=== PATIENT | male | born 1940 | race Two or more races ===

== ENCOUNTER 2021-02-28 01:41 | Inpatient (IN) | payer SELFPAY ==
[~2021-02-28] VITALS: Ht 177.8 cm; Wt 78.9 kg
--- NOTE | 2021-02-28 01:45 | NUR ---
PT BIBRA C/O FEVER X3DAYS WITH COUGH AND CONGESTION. PT AAOX4 BREATHING EVENLY AND UNLABORED. PT PLACED ON 2L O2 NC, STATING 96%. MD AT BEDSIDE. PT ATTACHED TO MONITOR AND POX. 20G RAC IV INITATIED. BLOOD OBTAINED AND SENT TO LAB. WILL CONTINUE TO MONITOR.
--- NOTE | 2021-02-28 01:50 | NUR ---
COVID SWAB SENT TO LAB
[2021-02-28] MEDS ORDERED: ACETAMINOPHEN ES 500 MG TABLET PO ONE (02:00)
[2021-02-28] MEDS ORDERED: ACETAMINOPHEN ES 500 MG TABLET ONE (02:05)
--- NOTE | 2021-02-28 02:27 | NUR ---
XRAY AT BEDSIDE
[2021-02-28 02:30] LABS: CALCIUM, SERUM 8.7 mg/dL (8.5-10.1); CARBON DIOXIDE 30 mmol/L (21-32); CHLORIDE 97 mmol/L (98-107); CREATININE 1.4 mg/dL (0.6-1.3); GLUCOSE 327 mg/dL (74-106); POTASSIUM 3.3 mmol/L (3.5-5.1); SODIUM SERUM 134 mmol/L (136-145); UREA NITROGEN, BLOOD 22 mg/dL (7-18)
[2021-02-28 02:36] LABS: ALANINE AMINOTRANSFERASE 24 U/L (12-78); ALBUMIN 2.9 g/dL (3.4-5.0); ALKALINE PHOSPHATASE 118 U/L (46-116); ASPARTATE AMINOTRANSFERASE 24 U/L (15-37); BILIRUBIN,DIRECT 0.3 mg/dL (0.0-0.2); BILIRUBIN,TOTAL 0.7 mg/dL (0.2-1.0); TOTAL PROTEIN, SERUM 7.2 g/dL (6.4-8.2)
[2021-02-28] MEDS ORDERED: CEFTRIAXONE 1GM BAG (ER ONLY) 50 ML IV ONE (02:39)
[2021-02-28] MEDS ORDERED: AZITHROMYCIN 500 MG VIAL ONE (02:40)
[2021-02-28 02:51] LABS: BASOPHILS % (AUTO) 0.2 % (0.0-2.0); HEMATOCRIT 37 % (39-51); HEMOGLOBIN 12.7 g/dL (13.5-17.5); LYMPHOCYTES # (AUTO) 0.7 K/uL (0.8-4.8); LYMPHOCYTES % (AUTO) 6.9 % (20.0-44.0); MEAN CORPUSCULAR HGB CONC 34 g/dl (31.0-36.0); MEAN CORPUSCULAR VOLUME 87 fL (80-96); MONOCYTES # (AUTO) 0.8 K/uL (0.1-1.30); MONOCYTES % (AUTO) 8.2 % (2.0-12.0); NEUTROPHILS % (AUTO) 84.7 % (43.0-81.0); PLATELET COUNT (AUTO) 165 K/uL (150-450); RED BLOOD CELL COUNT(AUTO) 4.26 MIL/uL (4.5-6.0); WHITE BLOOD COUNT (AUTO) 9.5 K/uL (4.3-11.0)
[2021-02-28] MEDS ORDERED: CEFTRIAXONE 1 G in IV D5W 50 ML IV ONE (03:00)
[2021-02-28] MEDS ORDERED: AZITHROMYCIN 500 MG in IV D5W 250 ML IV ONE (03:00)
--- NOTE | 2021-02-28 03:13 | NUR ---
MARKO HUGGINS - GRANDDAUGHTER. [phone]
[2021-02-28] MEDS ORDERED: CT SWABBABLE VALVE TRANS SET 1 EA INFUS.SET MC ONE (03:24)
[2021-02-28] MEDS ORDERED: IV NS 0.9% 250 ML IV ONE (03:24)
[2021-02-28] MEDS ORDERED: IOHEXOL-350 100 ML VIAL IV ONE (03:24)
[2021-02-28] MEDS ORDERED: IV NS 0.9% 1,000 ML BAG IV ONE (03:30)
--- NOTE | 2021-02-28 03:35 | NUR ---
TAKEN TO RADIOLOGY
--- NOTE | 2021-02-28 03:50 | NUR ---
RETURNED FROM CT
--- NOTE | 2021-02-28 04:35 | NUR ---
TEMP 99.9
--- NOTE | 2021-02-28 05:38 | NUR ---
urine sent to lab
[2021-02-28 05:43] LABS: BILIRUBIN,URINE Negative (NEGATIVE); COLOR,URINE YELLOW (YELLOW); LEUKOCYTE ESTERASE ,URINE Negative (NEGATIVE); NITRITE, URINE Negative (NEGATIVE); PROTEIN,URINE >=300 mg/dl (NEGATIVE); UGLUCOSE >=1000 mg/dL (NEGATIVE)
[2021-02-28 05:54] LABS: BACTERIA,URINE Rare /HPF (None Seen); RBC,URINE 0-2 /HPF (0-2); SQUAMOUS EPITHELIAL CELL,UR None Seen /HPF (None Seen); WBC,URINE 0-2 /HPF (0-3)
[2021-02-28 05:56] LABS: COARSE GRANULAR CASTS,URINE Moderate /LPF (None Seen); MUCUS,URINE Few /LPF (None Seen)
[2021-02-28 05:57] LABS: URINE AMORPHOUS PHOSPHATES Few /HPF (None Seen)
--- NOTE | 2021-02-28 05:58 | NUR ---
DR. FUNG PAGED PER ER ORDER.
[2021-02-28] MEDS ORDERED: MAG HYDROX/AL HYDROX/SIMETH 30 ML UDC PO PRN (06:30)
[2021-02-28] MEDS ORDERED: Z GUARD REMEDY 2 OZ OINT TP PRN (06:30)
[2021-02-28] MEDS ORDERED: ONDANSETRON HCL/PF 4 MG/2 ML VIAL IVP PRN (06:30)
[2021-02-28] MEDS ORDERED: MAGNESIUM HYDROXIDE 30 ML UDC PO PRN (06:30)
[2021-02-28] MEDS ORDERED: ZOLPIDEM TARTRATE 5 MG TABLET PO PRN (06:30)
--- NOTE | 2021-02-28 07:05 | NUR ---
gave report to karyn Avendaño for dharmesh
[2021-02-28] MEDS ORDERED: CEFTRIAXONE 1GM BAG (ER ONLY) 1 GM/50 ML PIGGYBACK IV SCH (09:00)
[2021-02-28] MEDS ORDERED: PANTOPRAZOLE 40 MG TABLET.DR PO ONE (09:13)
[2021-02-28] MEDS ORDERED: ENOXAPARIN SODIUM 40 MG/0.4 ML DISP.SYRIN SQ ONE (09:13)
[2021-02-28] MEDS: ENOXAPARIN SODIUM 40 MG/0.4 ML DISP.SYRIN SQ SCH (09:20)
[2021-02-28] MEDS: PANTOPRAZOLE 40 MG TABLET.DR PO SCH (09:22)
[2021-02-28] MEDS ORDERED: ACETAMINOPHEN 325 MG TABLET ONE (09:23)
[2021-02-28] MEDS ORDERED: DEXTROSE 50%-WATER 50 ML DISP.SYRIN IV PRN (09:30)
[2021-02-28] MEDS: IV NS 0.9% 1,000 ML IV PRN ×2 (09:50→23:05)
[2021-02-28] MEDS: ACETAMINOPHEN 325 MG TABLET PO PRN ×2 (09:52→18:04)
[2021-02-28] MEDS ORDERED: POTASSIUM CHLORIDE 20 MEQ TAB.PRT.SR PO ONE (09:59)
[2021-02-28] MEDS ORDERED: POTASSIUM CHLORIDE 20 MEQ TAB.PRT.SR PO SCH (10:00)
--- NOTE | 2021-02-28 10:59 | NUR ---
room 104 assigned
--- NOTE | 2021-02-28 11:35 | NUR ---
BEDSIDE REPORT GIVEN TO KARSTEN UREÑA FOR MARIXA
--- NOTE | 2021-02-28 11:35 | NUR ---
PT TRANSPORTED TO UNIT ON [facility] WITH EMT AND RN AT [facility] W/ ACLS RPTOCOL. NAD NOTED DURING TRANSPORT.
[2021-02-28 12:00] VITALS: BP 131/57
--- NOTE | 2021-02-28 12:00 | NUR ---
Patient was received from ED. Patient is alert and oriented with weakness. No c/o pain , weakness noted. Patient started on tele box monitor. Vitals assessed. Patient will be monitored.Assessments done.
[2021-02-28] MEDS: INSULIN REGULAR, HUMAN 100 UNIT/ML 3 ML VIAL SQ PRN ×3 (12:59→22:36)
[2021-02-28] MEDS: BLOOD SUGAR DIAGNOSTIC 1 EACH STRIP IN SCH ×3 (12:59→22:23)
[2021-02-28 16:00] VITALS: BP 133/59
[2021-02-28] MEDS ORDERED: NEBI5TAB8 PO (17:25)
[2021-02-28] MEDS ORDERED: IRBESARTAN PO (17:25)
[2021-02-28] MEDS ORDERED: [UNRECOGNIZED DRUG - OTHER] PO (17:25)
[2021-02-28] MEDS ORDERED: BETAHISTINE (17:25)
[2021-02-28] MEDS ORDERED: ATOR20TA PO (17:25)
--- NOTE | 2021-02-28 19:18 | NUR ---
RN CLOSING NOTES Patient is alert and oriented. Breathing even and unlabored. No c/o pain or discomfort. Patient running iv fluids, colby well. Vitals WNL. Bed is in lowest and locked position. Patient at 25% lunch and 50% dinner during shift. Will continue to monitor. Call light with in reach. Addendum: 02/28/21 at 1920 by SUN JOHNSON RN Endorsed to next shift for dharmesh.
--- NOTE | 2021-02-28 19:27 | NUR ---
MED RECON LIST GIVEN TO STAFF AND INFORMED DR HOLDER.
[2021-02-28 20:00] VITALS: BP 117/48
--- NOTE | 2021-02-28 20:30 | NUR ---
RN OPENING NOTE RECEIVED PT AWAKE IN BED. A/O X4. PT ON 2L O2 VIA NC SATS 96%. NO SOB OR S/S OF RESPIRATORY DISTRESS NOTED. PT HAS NO C/O PAIN OR DISCOMFORT AT THIS TIME. IV ACCESS IN LEFT HAND #20, INTACT AND PATENT. SAFETY MEASURES MAINTAINED. BED IN LOWEST LOCKED POSITION, HOB ELEVATED, SIDE RAILS UP X2. CALL LIGHT AND TABLE WITHIN REACH. WILL CONTINUE WITH PLAN OF CARE.
[2021-02-28] MEDS: CEFTRIAXONE 1 G in IV D5W 50 ML IV SCH (21:12)
[2021-02-28] MEDS: METOPROLOL TARTRATE 25 MG TABLET PO SCH (21:13)
[2021-02-28] MEDS: ATORVASTATIN 10 MG TABLET PO SCH (21:13)
[2021-03-01] VITALS: BP 119/55
[2021-03-01] MEDS: AZITHROMYCIN 500 MG in IV D5W 250 ML IV SCH ×2 (00:12→23:25)
[2021-03-01 04:00] VITALS: BP 141/66
--- NOTE | 2021-03-01 04:30 | NUR ---
STARLA ([phone]), PT'S DAUGHTER, CALLED AND WAS UPDATED ON PT'S CONDITION AND PLAN.
[2021-03-01 06:02] LABS: BASOPHILS % (AUTO) 0.2 % (0.0-2.0); EOSINOPHILS % (AUTO) 0.2 % (0.0-6.0); HEMATOCRIT 34 % (39-51); HEMOGLOBIN 11.5 g/dL (13.5-17.5); LYMPHOCYTES # (AUTO) 0.9 K/uL (0.8-4.8); LYMPHOCYTES % (AUTO) 11.8 % (20.0-44.0); MEAN CORPUSCULAR HGB CONC 34 g/dl (31.0-36.0); MEAN CORPUSCULAR VOLUME 89 fL (80-96); MONOCYTES # (AUTO) 0.7 K/uL (0.1-1.30); MONOCYTES % (AUTO) 8.6 % (2.0-12.0); NEUTROPHILS # (AUTO) 6.4 K/uL (1.8-8.9); NEUTROPHILS % (AUTO) 79.2 % (43.0-81.0); PLATELET COUNT (AUTO) 151 K/uL (150-450); RED BLOOD CELL COUNT(AUTO) 3.83 MIL/uL (4.5-6.0)
[2021-03-01 06:20] LABS: CALCIUM, SERUM 7.7 mg/dL (8.5-10.1); MAGNESIUM 2.1 mg/dL (1.8-2.4); PHOSPHORUS 1.8 mg/dL (2.5-4.9); POTASSIUM 3.3 mmol/L (3.5-5.1)
--- NOTE | 2021-03-01 06:30 | NUR ---
RN CLOSING NOTE PT IS IN BED WITH EYES CLOSED, EASILY AROUSED. A/O X4. PT ON 2L O2 VIA NC SATS 96%. NO SOB OR S/S OF RESPIRATORY DISTRESS NOTED. PT IS ON EXTERNAL SUPPORT DIRECTOR READING SR 72. PT HAS NO C/O PAIN OR DISCOMFORT AT THIS TIME. IV ACCESS IS INTACT, PATENT, AND FLUSHING WELL. ALL NEEDS HAVE BEEN MET. SAFETY PRECAUTIONS MAINTAINED AT ALL TIMES. BED IN LOWEST LOCKED POSITION, HOB ELEVATED, SIDE RAILS UP X2. CALL LIGHT AND TABLE WITHIN REACH. WILL ENDORSE TO ONCOMING NURSE FOR MARIXA.
[2021-03-01 06:33] LABS: THYROID STIMULATING HORMONE 0.476 uIU/mL (0.358-3.74)
[2021-03-01 08:00] VITALS: BP 150/62
--- NOTE | 2021-03-01 08:00 | NUR ---
RN note: Pt received alert awake oriented X 3. On 2LPM O2 via NC, no breathing distress noted at rest. Denies pain & discomfort. Safety measures observed. Encourage pt to use call light for assistance. Call light within reach. Continue to monitor.
[2021-03-01] MEDS: ENOXAPARIN SODIUM 40 MG/0.4 ML DISP.SYRIN SQ SCH (08:13)
[2021-03-01] MEDS: ASPIRIN 81 MG TAB.CHEW PO SCH (08:14)
[2021-03-01] MEDS: PANTOPRAZOLE 40 MG TABLET.DR PO SCH (08:14)
[2021-03-01] MEDS: LOSARTAN POTASSIUM 50 MG TABLET PO SCH (08:14)
[2021-03-01] MEDS: BLOOD SUGAR DIAGNOSTIC 1 EACH STRIP IN SCH ×4 (08:15→22:33)
[2021-03-01] MEDS: AMLODIPINE BESYLATE 10 MG TABLET PO SCH (08:15)
[2021-03-01] MEDS: METOPROLOL TARTRATE 25 MG TABLET PO SCH ×2 (08:15→22:19)
[2021-03-01] MEDS ORDERED: POTASSIUM CHLORIDE 20 MEQ TAB.PRT.SR PO ONE (10:00)
[2021-03-01] MEDS ORDERED: K PHOS NEUTRAL 250 MG TABLET PO ONE (10:00)
--- NOTE | 2021-03-01 10:02 | NUR ---
RN Note: AM insulin dose not given due to med not available. Called pharmacy X 2. Spoke with [facility] pharmacist. Waiting for insulin availability.
[2021-03-01] MEDS ORDERED: GUAIFENESIN/CODEINE 10 ML UDC PO PRN (11:00)
[2021-03-01] MEDS: INSULIN REGULAR, HUMAN 100 UNIT/ML 3 ML VIAL SQ PRN ×3 (11:31→22:37)
[2021-03-01 12:00] VITALS: BP 124/57
[2021-03-01 16:00] VITALS: BP 130/59
[2021-03-01] MEDS: IV NS 0.9% 1,000 ML IV PRN (16:44)
--- NOTE | 2021-03-01 19:45 | NUR ---
MS RN OPENING NOTE PATIENT IN BED A/OX4; TRINIDADIAN SPEAKING. ON O2 2LPM VIA N/C; TOLERATING WELL WITH NO SOB. NO S/SX OF PAIN OR DISCOMFORT. LAC #20G NS @ 75ML/HR; PATENT AND INTACT. SAFETY MEASURES IN PLACE: BED IN LOWEST LOCKED POSITION, SIDE RAILS UPX2, CALL LIGHT WITHIN EASY REACH. PATIENT IN STABLE CONDITION WILL CONTINUE PLAN OF CARE.
[2021-03-01 20:00] VITALS: BP 149/58
--- NOTE | 2021-03-01 20:16 | NUR ---
MS RN OPENING NOTE PATIENT IN BED A/OX2. ON O2 8LPM VIA T-PIECE; TOLERATING WELL WITH NO SOB. NO S/SX OF PAIN OR DISCOMFORT. GT PEG PATENT AND INTACT; JEVITY 1.2@ 60ML/HR; TOLERATING FEEDINGS WELL. LAC IV INTACT; 1/2 NS @ 125 ML/HR. DRESSINGS FOR CARCINOMA LESION ON NECK KEPT C/D/I. SAFETY MEASURES IN PLACE: BED IN LOWEST LOCKED POSITION, SIDE RAILS UPX2, CALL LIGHT WITHIN EASY REACH, BED ALARMS ON. PATIENT IN STABLE CONDITION WILL CONTINUE PLAN OF CARE. Addendum: 03/02/21 at 0650 by RITESH GUERRERO RN ERROR WRONG PATIENT DISREGARD NOTE
[2021-03-01] MEDS: CEFTRIAXONE 1 G in IV D5W 50 ML IV SCH (21:48)
[2021-03-01] MEDS: ATORVASTATIN 10 MG TABLET PO SCH (22:18)
[2021-03-01] MEDS: INSULIN GLARGINE, 100 UNIT/ML CARTRIDGE SQ SCH (22:39)
[2021-03-02] VITALS: BP 128/60
[2021-03-02] MEDS: ACETAMINOPHEN 325 MG TABLET PO PRN ×2 (00:14→21:59)
--- NOTE | 2021-03-02 00:30 | NUR ---
MS RN NOTE - TEMP PATIENT NOTED WITH TEMP OF 100.4. ADMINISTERED TYLENOL ORDERED AT 0014. INITIATED COOLING MEASURES. NOTIFIED MARKO GRANDDAUGHTER. WILL CONTINUE TO REASSESS TEMPERATURE.
[2021-03-02 04:00] VITALS: BP 127/56
[2021-03-02 05:48] LABS: BASOPHILS % (AUTO) 0.4 % (0.0-2.0); EOSINOPHILS % (AUTO) 1.5 % (0.0-6.0); HEMATOCRIT 32 % (39-51); HEMOGLOBIN 11.1 g/dL (13.5-17.5); LYMPHOCYTES # (AUTO) 1.2 K/uL (0.8-4.8); LYMPHOCYTES % (AUTO) 17.6 % (20.0-44.0); MEAN CORPUSCULAR HGB CONC 34 g/dl (31.0-36.0); MEAN CORPUSCULAR VOLUME 87 fL (80-96); MONOCYTES # (AUTO) 0.7 K/uL (0.1-1.30); MONOCYTES % (AUTO) 10.8 % (2.0-12.0); NEUTROPHILS # (AUTO) 4.6 K/uL (1.8-8.9); NEUTROPHILS % (AUTO) 69.7 % (43.0-81.0); PLATELET COUNT (AUTO) 175 K/uL (150-450); RED BLOOD CELL COUNT(AUTO) 3.71 MIL/uL (4.5-6.0); WHITE BLOOD COUNT (AUTO) 6.6 K/uL (4.3-11.0)
--- NOTE | 2021-03-02 06:53 | NUR ---
MS RN CLOSING NOTE PATIENT IN BED A/OX4; EMIRATI SPEAKING. ON ROOM AIR; TOLERATING WELL WITH NO SOB OR PAIN. NO S/SX OF PAIN OR DISCOMFORT. RAC #20G NS @ 75ML/HR; PATENT AND INTACT. EDUCATED PATIENT TO COLLECT URINE AND SPUTUM SPECIMEN; PATIENT VERBALIZED UNDERSTANDING. SAFETY MEASURES IN PLACE: BED IN LOWEST LOCKED POSITION, SIDE RAILS UPX2, CALL LIGHT WITHIN EASY REACH. PATIENT IN STABLE CONDITION WILL ENDORSE PLAN OF CARE TO MORNING RN.
--- NOTE | 2021-03-02 07:44 | NUR ---
MS/RN OPENING NOTE RECEIVED PATIENT IN BED A/OX4; OCCITAN SPEAKING. ON ROOM AIR; TOLERATING WELL WITH NO SOB OR PAIN. NO S/SX OF PAIN OR DISCOMFORT. RAC #20G NS @ 75ML/HR; PATENT AND INTACT. SAFETY MEASURES IN PLACE: BED IN LOWEST LOCKED POSITION, SIDE RAILS UPX2, CALL LIGHT WITHIN EASY REACH. WILL CONTINUE TO MONITOR PATIENT.
[2021-03-02 08:00] VITALS: BP 139/68
[2021-03-02 08:04] LABS: CALCIUM, SERUM 7.7 mg/dL (8.5-10.1); CREATININE 0.9 mg/dL (0.6-1.3); PHOSPHORUS 1.9 mg/dL (2.5-4.9)
[2021-03-02] MEDS: ASPIRIN 81 MG TAB.CHEW PO SCH (08:16)
[2021-03-02] MEDS: PANTOPRAZOLE 40 MG TABLET.DR PO SCH (08:17)
[2021-03-02] MEDS: METOPROLOL TARTRATE 25 MG TABLET PO SCH ×2 (08:17→20:55)
[2021-03-02] MEDS: AMLODIPINE BESYLATE 10 MG TABLET PO SCH (08:18)
[2021-03-02] MEDS: LOSARTAN POTASSIUM 50 MG TABLET PO SCH (08:18)
[2021-03-02] MEDS: BLOOD SUGAR DIAGNOSTIC 1 EACH STRIP IN SCH ×4 (08:19→21:44)
[2021-03-02] MEDS: ENOXAPARIN SODIUM 40 MG/0.4 ML DISP.SYRIN SQ SCH (08:19)
[2021-03-02] MEDS ORDERED: K PHOS NEUTRAL 250 MG TABLET PO ONE (09:30)
[2021-03-02] MEDS: POTASSIUM CHLORIDE 20 MEQ TAB.PRT.SR PO SCH ×3 (10:15→11:51)
[2021-03-02 12:16] VITALS: BP 139/68
[2021-03-02] MEDS: INSULIN REGULAR, HUMAN 100 UNIT/ML 3 ML VIAL SQ PRN ×3 (14:01→21:49)
[2021-03-02 16:00] VITALS: BP 124/55
--- NOTE | 2021-03-02 19:05 | NUR ---
MS/RN CLOSING NOTE PATIENT IN BED A/OX4; PALAUAN SPEAKING. ON ROOM AIR; TOLERATING WELL WITH NO SOB OR PAIN. NO S/SX OF PAIN OR DISCOMFORT. RAC #20G NS @ 75ML/HR; PATENT AND INTACT. SAFETY MEASURES IN PLACE: BED IN LOWEST LOCKED POSITION, SIDE RAILS UPX2, CALL LIGHT WITHIN EASY REACH. WILL ENDORSE TO THE NEXT SHIFT FOR CONTINUITY OF CARE.
--- NOTE | 2021-03-02 19:52 | NUR ---
MS RN NOTES PATIENT IN BED A/OX4. SRI LANKAN SPEAKING, CALLED - SUDHA TO TRANSLATE FOR HIM. NO S/S OF APPARENT DISTRESS. NO C/O PAIN MARÍA ELENA. NO IV FLUID RUNNING AT THE MOMENT. SAFETY IN PLACE: BED IN LOWEST, LOCKED POSITION. HOB ELEVATED, SIDE RAILS UP X2, CALL LIGHT WITHIN REACH. WILL CONTINUE TO MONITOR.
[2021-03-02] MEDS: CEFTRIAXONE 1 G in IV D5W 50 ML IV SCH (20:52)
[2021-03-02] MEDS: ATORVASTATIN 10 MG TABLET PO SCH (21:45)
[2021-03-02] MEDS: INSULIN GLARGINE, 100 UNIT/ML CARTRIDGE SQ SCH (21:48)
--- NOTE | 2021-03-02 22:00 | NUR ---
MS RN NOTES PATIENT BS IS 220. GIVEN 4 UNITS OF REGULAR INSULIN PER SLIDING SCALE AND LANTUS 15 UNITS. SNACKS PROVIDED ON BED SIDE. WILL CONT. TO MONITOR.
--- NOTE | 2021-03-02 22:20 | NUR ---
MS RN NOTES PATIENT C/O BODY/SHOULDER PAIN. GIVEN TYLENOL PRN FOR MILD PAIN.
[2021-03-02] MEDS: AZITHROMYCIN 500 MG in IV D5W 250 ML IV SCH (23:45)
[2021-03-03 06:02] LABS: BASOPHILS % (AUTO) 0.4 % (0.0-2.0); EOSINOPHILS % (AUTO) 3.2 % (0.0-6.0); HEMATOCRIT 33 % (39-51); HEMOGLOBIN 11.7 g/dL (13.5-17.5); LYMPHOCYTES % (AUTO) 18.5 % (20.0-44.0); MEAN CORPUSCULAR HGB CONC 35 g/dl (31.0-36.0); MEAN CORPUSCULAR VOLUME 87 fL (80-96); MONOCYTES # (AUTO) 0.6 K/uL (0.1-1.30); MONOCYTES % (AUTO) 10.2 % (2.0-12.0); NEUTROPHILS # (AUTO) 3.7 K/uL (1.8-8.9); NEUTROPHILS % (AUTO) 67.7 % (43.0-81.0); PLATELET COUNT (AUTO) 188 K/uL (150-450); RED BLOOD CELL COUNT(AUTO) 3.85 MIL/uL (4.5-6.0); WHITE BLOOD COUNT (AUTO) 5.4 K/uL (4.3-11.0)
[2021-03-03 06:29] LABS: CALCIUM, SERUM 7.9 mg/dL (8.5-10.1); CREATININE 0.7 mg/dL (0.6-1.3); POTASSIUM 3.6 mmol/L (3.5-5.1)
--- NOTE | 2021-03-03 07:01 | NUR ---
MS RN CLOSING PATIENT IN BED WITH EYES CLOSED, EASY TO AROUSE. A/OX4. NO S/S OF APPARENT DISTRESS, TOLERATING 2LPM OF O2 VIA NC. SKIN INTACT - NO PICTURES TAKEN. PAIN MANAGED WITH MEDICATIONS. SAFETY KEPT IN PLACE THE WHOLE SHIFT. ALL NEEDS ATTENDED. IV NS RUNNING @75 ML/HR. ALL SCHED MEDS ADMINISTERED. NO SIGNIFICANT CHANGE SINCE LAST SHIFT. WILL ENDORSE CARE TO MORNING SHIFT RN.
--- NOTE | 2021-03-03 07:15 | NUR ---
RN NOTES PATIENT IN BED RESTING WITH EYES CLOSED, ABLE TO BE AWAKENED. A/OX4, CITIZEN OF [place]-SPEAKING, ABLE TO UNDERSTAND SOME [place] AND MAKE NEEDS KNOWN. BREATHING EVEN AND UNLABORED, ON 2LPM OF O2 VIA NC. IV LINE INTACT AND PATENT. SAFETY MEASURES IN PLACE. WILL CONTINUE TO MONITOR.
[2021-03-03] MEDS: BLOOD SUGAR DIAGNOSTIC 1 EACH STRIP IN SCH ×2 (07:39→12:13)
[2021-03-03] MEDS: PANTOPRAZOLE 40 MG TABLET.DR PO SCH (08:40)
[2021-03-03] MEDS: AMLODIPINE BESYLATE 10 MG TABLET PO SCH (08:40)
[2021-03-03] MEDS: ASPIRIN 81 MG TAB.CHEW PO SCH (08:40)
[2021-03-03] MEDS: METOPROLOL TARTRATE 25 MG TABLET PO SCH (08:40)
[2021-03-03 08:41] VITALS: BP 149/62
[2021-03-03] MEDS: LOSARTAN POTASSIUM 50 MG TABLET PO SCH (08:41)
[2021-03-03] MEDS: INSULIN REGULAR, HUMAN 100 UNIT/ML 3 ML VIAL SQ PRN (08:45)
[2021-03-03] MEDS: ENOXAPARIN SODIUM 40 MG/0.4 ML DISP.SYRIN SQ SCH (08:57)
[2021-03-03] MEDS ORDERED: GLUCERNA SHAKE 237 ML CAN PO SCH (09:00)
--- NOTE | 2021-03-03 09:08 | NUR ---
RN NOTES PATIENT WAS SEEN BY DR. HOLDER TODAY W/ ORDERS NOTED. FOR DISCHARGE TO HOME TODAY.
[2021-03-03] MEDS ORDERED: INSU100I30 SQ (09:51)
[2021-03-03] MEDS ORDERED: AMOX-430 PO (09:51)
--- NOTE | 2021-03-03 10:30 | NUR ---
RN NOTES SPOKE W/ DTR AND MARKO, FAMILY MEMBER, AND INFORMED ABOUT PATIENT'S CONDITION AND POTENTIAL DISCHARGE TODAY.
--- NOTE | 2021-03-03 11:00 | NUR ---
RN NOTES SPOKE W/ CANDY SUPERVISOR AND MADE AWARE OF FAMILY'S CONCERNS; SW TO CALL BACK MARKO WHEN AVAILABLE.
--- NOTE | 2021-03-03 14:27 | NUR ---
RN NOTES PATIENT ABLE TO EAT BREAKFAST AND LUNCH TODAY INDEPENDENTLY; ADVISED IMPORTANCE OF GLYCEMIC CONTROL THRU DIET. PATIENT W/ ORDER FOR DIETARY CONSULT TODAY FOR DIABETIC TEACHING; LEFT MESSAGE TO MICHELLE.
--- NOTE | 2021-03-03 16:48 | NUR ---
RN NOTES PATIENT SEEN BY DR. HOLDER W/ ORDER FOR DISCHARGE TO HOME TODAY. ALSO SEEN BY VERONIKA, SENIOR ACCOUNT DIRECTOR, AND PROVIDED DIABETIC TEACHING AND DIET MANAGEMENT; SPOKE W/ DTR STARLA AND VERBALIZED UNDERSTANDING, TRANSLATED FOR PATIENT. DISCHARGE INSTRUCTION AND EDUCATION PROVIDED TO PATIENT, STARLA DTR, AND MARKO BETHEA DTR OF PATIENT, VERBALIZED UNDERSTANDING. ADVISED TO ADHERE TO DIABETIC DIET AND LANTUS ADMINISTRATION FOR GLYCEMIC CONTROL. PRESCRIPTION GIVEN TO MARKO. IV LINE REMOVED. PATIENT REQUESTED IF NAME ARMBAND CAN BE LEFT W/ HIM. NO SKIN ISSUES NOTED. ACCOMPANIED BY KIMBERLI CHÁVEZ, TO THE LOBBY VIA WHEELCHAIR AND PICKED UP BY FAMILY VIA PRIVATE CAR. CHARGE NURSE AND MD AWARE OF DISCHARGE.
[2021-03-06] MEDS ORDERED: AZIT1PAC PO (09:06)
== END 2021-03-03 16:52 | disposition home or self-care (01) | DRG 871 ==
LOC: ER 01:44 → TRANSITION 08:00 → TELE1 11:07 → MEDSG1 03-01 10:41
PROVIDERS: ADMIT Nurse Practitioner Acute Care; ATTEND Nurse Practitioner Acute Care
DX: A41.9 Sepsis, unspecified organism (principal); N17.0 Acute kidney failure with tubular necrosis; J96.01 Acute respiratory failure with hypoxia; G92 Toxic encephalopathy; A48.1 Legionnaires' disease; E87.1 Hypo-osmolality and hyponatremia; E87.2 Acidosis; E44.0 Moderate protein-calorie malnutrition; E11.22 Type 2 diabetes mellitus with diabetic chronic kidney disease; E83.39 Other disorders of phosphorus metabolism; N18.9 Chronic kidney disease, unspecified; Z20.822 Contact with and (suspected) exposure to COVID-19; E11.65 Type 2 diabetes mellitus with hyperglycemia; E86.1 Hypovolemia; E78.5 Hyperlipidemia, unspecified; I25.10 Atherosclerotic heart disease of native coronary artery without angina pectoris; I12.9 Hypertensive chronic kidney disease with stage 1 through stage 4 chronic kidney disease, or unspecified chronic kidney disease; E88.09 Other disorders of plasma-protein metabolism, not elsewhere classified; M62.50 Muscle wasting and atrophy, not elsewhere classified, unspecified site; E87.6 Hypokalemia; E11.42 Type 2 diabetes mellitus with diabetic polyneuropathy; Z68.25 Body mass index [BMI] 25.0-25.9, adult; R32 Unspecified urinary incontinence
CPT/HCPCS: 36415; 71045-TC; 80048-TC; 80061-TC; 80076-TC; 81001; 82962-TC; 83605-TC; 83735-TC; 84100-TC; 84443-TC; 84484-TC; 85025-TC; 85730-TC; 87040-TC; 87070-TC; 87081-TC; 87086-TC; 87449; 87899; 93307-TC; C9803; G0378; J0456; J0696; J1650; J1815; J7030; J7050; J7060; Q9967; U0003